=== PATIENT | female | born 2000 | race Caucasian/White ===

== ENCOUNTER 2021-01-29 14:00 | Outpatient (RCR) | payer OTHER, SELFPAY | END 2021-02-14 16:26 | disposition home or self-care (01) | LOC: PT.CARL 14:00 | PROVIDERS: Visit Provider Family Medicine | DX: M22.2X1 Patellofemoral disorders, right knee (principal) | CPT/HCPCS: 97010; 97014; 97033; 97110; 97163; G0283 ==

== ENCOUNTER 2021-11-11 14:29 | Emergency (ER) | payer OTHER, SELFPAY ==
[2021-11-11 14:54] VITALS: BP 112/77; PULSE 100; RESP 18; TEMP 36.8; O2SAT 98; BMI 26.4
[2021-11-11 14:59] LABS: UTC Strep Screen (Rapid) Negative (Negative)
--- NOTE | 2021-11-11 15:00 | EXP.UTC ---
Discharge Plan Disposition Patient Disposition: Home, Self-Care Condition: Good Prescriptions Prescriptions: New methylprednisolone 4 mg Tablets,Dose Pack 4 mg PO DIRECTED Qty: 21 0RF [id number] [Bromfed DM] 2-30-10 mg/5 mL Syrup 5 ml PO Q6H PRN (Reason: Cough) Qty: 240 0RF ondansetron 4 mg Tablet,Disintegrating 4 mg PO Q8H PRN (Reason: Nausea) Qty: 20 0RF ibuprofen [ibuprofen] 600 mg tablet 600 mg PO Q6HP PRN (Reason: Mild Pain) Qty: 30 0RF acetaminophen 500 mg capsule 1,000 mg PO Q6H PRN (Reason: pain) Qty: 30 0RF Referrals Follow up/Referrals: Cari Yan [Primary Care Provider] - See instructions Activity Restrictions/Add. Instructions Additional Instructions/Restrictions: Drink plenty of fluids. Take tylenol or ibuprofen for pain or fever. Take the medications as directed. Follow up with your regular doctor. GO TO THE ER FOR ANY WORSENING SYMPTOMS Clinical Impressions Clinical Impression: COVID-19, Acute viral pharyngitis Instructions Patient Instructions: Coronavirus Disease 2019, Preventing the Spread of Coronavirus Discharge Instructions Discharge ED Provider: Macho Norton [facility] General Stated complaint: 2 covid home test postive sore throat Time Seen by Provider: 11/11/21 15:00 History of Present Illness Provider Complaint: She has tested positive for covid-19 at home yesterday and today. She came in today because she is having a very sore throat and wants to be tested for strep also. Related Data Previous Rx's Medication Instructions Recorded acetaminophen 500 mg capsule 1,000 mg PO Q6H PRN pain #30 caps 11/11/21 qlpcjlpqvmznanz-daplkrsycadaeoc-FM 5 ml PO Q6H PRN Cough #240 mL 11/11/21 2 mg-30 mg-10 mg/5 mL oral syrup (Bromfed DM) ibuprofen 600 mg tablet 600 mg PO Q6HP PRN Mild Pain #30 11/11/21 tabs methylprednisolone 4 mg tablets in 4 mg PO DIRECTED #21 tabs 11/11/21 a dose pack ondansetron 4 mg disintegrating 4 mg PO Q8H PRN Nausea #20 tabs 11/11/21 tablet Allergies Allergy/AdvReac Type Severity Reaction Status Date / Time Cephalosporins Allergy Intermediate I-HIVES Verified 11/11/21 15:01 poison dede extract Allergy Mild I-RASH Verified 11/11/21 15:01 [facility] Social History Smoking Status: Never smoker alcohol intake: never current occupational status: employed ROS Obtained: Yes All systems reviewed & no additional complaints except as documented Constitutional Constitutional: Reports chills and Reports fever(s) Eyes Eyes: Denies eye discharge ENT Ears, Nose, Mouth, and Throat: Reports as per HPI Cardiovascular Cardiovascular: Denies chest pain Respiratory Respiratory: Denies chest congestion and Reports cough Gastrointestinal Gastrointestingal: Reports nausea; Denies abdominal pain, constipation, cramping, diarrhea or vomiting Musculoskeletal Musculoskeletal: Denies arthralgias Integumentary/Breasts Skin/Breast: Denies rash Neurologic Neurologic: Denies paresthesias Physical Exam General General appearance: alert and in no apparent distress Head Head exam: atraumatic, normocephalic and normal inspection Eye Eye exam: Present normal appearance, PERRL and EOMI ENT ENT exam: Present normal exam, normal oropharynx, mucous membranes moist, TM's normal bilaterally and normal external ear exam Neck Neck exam: Present normal inspection, full ROM and trachea midline; Absent meningismus or lymphadenopathy Chest Chest inspection: Present normal inspection and symmetric chest wall rise; Absent tenderness Respiratory Respiratory exam: Present normal lung sounds bilaterally; Absent respiratory distress Cardiovascular Cardiovascular exam: Present regular rate and normal rhythm; Absent JVD Abdominal Exam Abdominal exam: Present soft and normal bowel sounds; Absent distention, tenderness or guarding Extremities Exam Extremities exam: Prese
[2021-11-11 15:37] VITALS: BP 112/77; PULSE 100; RESP 18; TEMP 36.8
== END 2021-11-11 15:42 | disposition home or self-care (01) ==
PROVIDERS: Emergency Provider Nurse Practitioner Family; PCP Nurse Practitioner Family
DX: J02.9 Acute pharyngitis, unspecified (principal); U07.1 COVID-19; R11.2 Nausea with vomiting, unspecified; R51.9 Headache, unspecified; R05.9 Cough, unspecified; Z79.899 Other long term (current) drug therapy
CPT/HCPCS: 87880; 99213; G0463

== ENCOUNTER → 2021-11-22 08:00 | Outpatient (CLI) | payer OTHER, SELFPAY ==
--- NOTE | 2021-11-22 08:09 | US_ITS ---
FINAL REPORT CLINICAL HISTORY: UPPER ABDOMIAL, UNSPECIFIED FINDINGS: Sonographic images of the right upper quadrant were obtained. The pancreas is partially obscured.The liver has an unremarkable appearance.The gallbladder appears normal without evidence of gallstones.There is no evidence of biliary ductal dilatation.The common duct measures 2 mm. Limited images of the right kidney are unremarkable. IMPRESSION: Unremarkable right upper quadrant ultrasound. Reviewed, Interpreted and Dictated by Home Lambert III, MD Transcribed by Shakira Jerez Authenticated and [facility]
[2021-11-23 17:14] LABS: H. pylori Breath Test Negative (Negative)
== END ==
PROVIDERS: PCP Nurse Practitioner Family; Visit Provider Nurse Practitioner Family
DX: R10.10 Upper abdominal pain, unspecified (principal)
CPT/HCPCS: 76705; 83013

== ENCOUNTER 2024-02-29 19:40 | Emergency (ER) | payer OTHER, SELFPAY ==
[2024-02-29 19:41] VITALS: BP 130/92; PULSE 108; RESP 18; TEMP 36.8; O2SAT 99; BMI 27.5
--- NOTE | 2024-02-29 19:45 | ED_ITS ---
<Statement entered by Lelia Mo DO - 02/29/24 23:38> I was consulted by the DERIC, and we discussed the complexity of the problems being addressed. I approved the treatment and management plan for this patient's care in the emergency department, thus performing a substantive portion of the medical decision making. Lelia Mo DO Discharge Plan Disposition Patient Disposition: Home, Self-Care Condition: Good Prescriptions Prescriptions: No Action methylprednisolone 4 mg Tablets,Dose Pack 4 mg PO DIRECTED Qty: 21 0RF kiamieewnqohbeq-eqvxqmgfi-UB [Bromfed DM] 2-30-10 mg/5 mL Syrup 5 ml PO Q6H PRN (Reason: Cough) Qty: 240 0RF ondansetron 4 mg Tablet,Disintegrating 4 mg PO Q8H PRN (Reason: Nausea) Qty: 20 0RF ibuprofen [ibuprofen] 600 mg tablet 600 mg PO Q6HP PRN (Reason: Mild Pain) Qty: 30 0RF acetaminophen 500 mg capsule 1,000 mg PO Q6H PRN (Reason: pain) Qty: 30 0RF Referrals Follow up/Referrals: Cari Yan [Primary Care Provider] - See instructions Activity Restrictions/Add. Instructions Additional Instructions/Restrictions: As we have discussed, please check the patient portal for your throat culture results. Please continue your amoxicillin as scheduled. Please utilize the Magic mouthwash if its helpful with the pain. Continue taking Tylenol 1000 mg alternating every 4 hours with 800 mg of ibuprofen for symptomatic treatment. Clinical Impressions Clinical Impression: Acute pharyngitis Qualifiers: Pharyngitis/tonsillitis etiology: unspecified etiology Qualified Code(s): J02.9 - Acute pharyngitis, unspecified Stand Alone Forms Stand Alone Forms: Work/School Release Print Language Print Language: Tongan Discharge ED Provider: Lelia Mo General Adult HPI General Chief complaint: PAIN Stated complaint: sore throat, Time Seen by Provider: 02/29/24 19:45 History of Present Illness HPI narrative: Patient presents for evaluation of acute pharyngitis. Patient was seen and evaluated at a school clinic on Friday but had a negative rapid strep test. However they prescribed her amoxicillin anyway. Patient reports that she has had no improvement and actually has had worsening pharyngitis since Friday. She also reports that her fever is not under control and she has malaise and bodyaches but no chest pain shortness of breath nausea vomiting diarrhea dysuria. Related Data Previous Rx's ?Medication ?Instructions ?Recorded acetaminophen 500 mg capsule 1,000 mg (2 x 500 mg) PO Q6H PRN 11/11/21 pain #30 caps xlocczgpbossjgz-izvpphhqskmrwej-ZQ 5 ml PO Q6H PRN Cough #240 mL 11/11/21 2 mg-30 mg-10 mg/5 mL oral syrup (Bromfed DM) ibuprofen 600 mg tablet 600 mg PO Q6HP PRN Mild Pain #30 11/11/21 tabs methylprednisolone 4 mg tablets in 4 mg PO DIRECTED #21 tabs 11/11/21 a dose pack ondansetron 4 mg disintegrating 4 mg PO Q8H PRN Nausea #20 tabs 11/11/21 tablet Allergies Allergy/AdvReac Type Severity Reaction Status Date / Time Cephalosporins Allergy Intermediate I-HIVES Verified 11/11/21 15:01 poison dede extract Allergy Mild I-RASH Verified 11/11/21 15:01 [facility] Disclaimer: The information contained in this section may have been updated after the patient was seen, as this information can be updated by other users. Social History (Updated 11/11/21 @ 21:23 by Macho Norton APRN) Smoking Status: Never smoker alcohol intake: never current occupational status: employed Travel in the last 8 weeks: None Have you lived/traveled outside [place] in past 30 days?: No Contact w/someone who lives/traveled outside [place] past 30 days?: No Exposure to someone with infectious disease in past 14 days?: No Do you have a fever (greater than 100.4 F or 38 C)?: No Have you tested positive for COVID-19: No Exposed to someone with COVID-19 in past 14 days?: No Do you have a sore throat?: Yes Do you have a cough?: Yes Do you have any weakness?: No Do you have any diarrhea?: No Are you experiencing any unusual bleeding?: No Do you have any muscle aches/pain?: No Do you have any abdominal pain?: No Are you experiencing loss of taste or smell?: No ROS Obtained: Yes Systems reviewed as appropriate & no additional complaints except as documented Physical Exam General General appearance: alert and in no apparent distress Respiratory Respiratory exam: Present normal lung sounds bilaterally Cardiovascular Cardiovascular exam: Present regular rate Neurological Exam Neurological exam: Present alert and oriented X3 Medical Decision Making Medical Records Medical records reviewed: Yes I reviewed the patient's medical records. Screening: Per USPSTF and CDC recommendations, given the prevalence of disease in our region, it is our hospital?s policy to screen for HIV and viral Hepatitis for all patients aged 18 and over and those with ongoing risk factors. Josh Inquiry Pt receiving controlled substance: No Vital Signs: 02/29/24 19:41 Temperature 98.2 F Temperature Source Oral Pulse Rate [Right] 108 H Respiratory Rate 18 Blood Pressure [Right Arm] 130/92 H Blood Pressure Mean [Right Arm] 104 Blood Pressure Source [Right Arm] Automatic Cuff 02 Sat by Pulse Oximetry 99 Oxygen Delivery Method Room Air Lab Data Lab results reviewed: Yes I reviewed the patient's lab results. Lab Results 02/29/24 20:09: Chlamy pneumoniae PCR Not detected, Adenovirus (PCR) Not detected, B. pertussis DNA (PCR) Not detected, Coronavirus OC43 (PCR) Not detected, Coronavirus HKU1 (PCR) Not detected, Coronavirus 229E (PCR) Not detected, SARS-CoV-2 (PCR) Not detected, Coronavirus NL63 (PCR) Not detected, Human Metapneumovir PCR Not detected, Influenza A (H1) PCR Not detected, Influ A (H1N1/09) PCR Not detected, Influenza A (H3) PCR Not detected, Influenza Type A (PCR) Not detected, Influenza Type B (PCR) Not detected, M. pneumoniae (PCR) Not detected, Parainfluenza 1 (PCR) Not detected, Parainfluenza 2 (PCR) Not detected, Parainfluenza 3 (PCR) Not detected, Parainfluenza 4 (PCR) Not detected, RSV (PCR) Not detected, Entero/Rhino (PCR) Not detected, Group A Strep Rapid Negative 02/29/24 21:28: Monoscreen Negative Orders (Tests/Meds): ED MEDICATIONS Generic Name Dose Route Start Last Admin Trade Name Freq PRN Reason Stop Dose Admin Dexamethasone 10 mg 02/29/24 21:59 Dexamethasone 1mg/1ml Intensol 10ml Udc (Er) PO 02/29/24 22:00 ONCE ONE Discontinued Medications Generic Name Dose Route Start Last Admin Trade Name Freq PRN Reason Stop Dose Admin Acetaminophen 1,000 mg 02/29/24 20:17 02/29/24 20:23 Acetaminophen 500mg Tab PO 02/29/24 20:18 1,000 mg ONCE ONE Administration Ibuprofen 800 mg 02/29/24 20:17 02/29/24 20:24 Ibuprofen 400 Mg Tablet PO 02/29/24 20:18 800 mg ONCE ONE Administration ORDERS Category Date Time Status Full Resp Panel w/COVID ([facility]) Routine Lab 02/29/24 20:09 Completed Monoscreen (Rapid) Stat Lab 02/29/24 21:28 Completed Rapid Strep Scrn Group A [Strep Scrn Group A (Rapid)] Lab 02/29/24 20:09 Completed Stat Strep Screen Confirmation Stat Micro 02/29/24 20:09 Received Throat Culture Routine Micro 02/29/24 20: Received Medical Decision Narrative: In summary patient is a 23-year-old female who presents to the emergency department for evaluation of acute pharyngitis. Patient is hemodynamically stable upon arrival, afebrile. Physical exam is remarkable for a very erythematous and inflamed posterior pharynx with what appears to be tonsillar exudate. Patient has bilateral anterior cervical lymphadenopathy.. Differential diagnosis includes viral or bacterial pharyngitis. Initial workup will be conducted with full respiratory swab full throat swab rapid strep and mono.. Initial interventions include Tylenol and ibuprofen. I offered the patient topical numbing spray but she declined. Initial workup reviewed by me and her full respiratory panel is negative her rapid strep is negative and her mono is negative. Upon repeat evaluation patient had only minimal response with Tylenol Motrin. Given this is her throat culture is pending and she is on appropriate antibiotics for now even though this may be viral such as a coxsackie which is not on the respiratory panel I will give the patient dose of dexamethasone and Magic mouthwash with close follow-up with her PCP and strict return precautions. Critical Care Critical Care Time Critical Care Time: No
[2024-02-29] MEDS: ACETAMINOPHEN 500MG TAB 1000 MG PO (20:23)
[2024-02-29] MEDS: IBUPROFEN 400 MG TABLET 800 MG PO (20:24)
[2024-02-29 20:29] LABS: Adenovirus,PCR Not Detected (NotDetected); Bordetella Pertussis Not Detected (NotDetected); Chlamydophila Pneumoniae, PCR Not Detected (NotDetected); Coronavirus 19, PCR Not Detected (NotDetected); Coronavirus 229E Not Detected (NotDetected); Coronavirus NL63 Not Detected (NotDetected); Coronavirus OC43 Not Detected (NotDetected); Coronovirus HKU1,PCR Not Detected (NotDetected); Human Metapneumovirus Not Detected (NotDetected); Influenza A, PCR Not Detected (NotDetected); Influenza AH1, 2009 Not Detected (NotDetected); Influenza AH1, PCR Not Detected (NotDetected); Influenza AH3,PCR Not Detected (NotDetected); Influenza B, PCR Not Detected (NotDetected); Mycoplasma Pneumoniae, PCR Not Detected (NotDetected); Parainfluenza 1, PCR Not Detected (NotDetected); Parainfluenza 2, PCR Not Detected (NotDetected); Parainfluenza 3, PCR Not Detected (NotDetected); Parainfluenza 4, PCR Not Detected (NotDetected); Respiratory Syncytial Virus Not Detected (NotDetected); Rhinovirus/Enterovirus Not Detected (NotDetected)
[2024-02-29 20:36] LABS: Strep Scrn Group A (Rapid) Negative (Negative)
[2024-02-29 21:52] LABS: Monoscreen (Rapid) Negative (Negative)
[2024-02-29 22:24] VITALS: BP 128/74; PULSE 70; RESP 18; TEMP 36.8; O2SAT 98
[2024-02-29] MEDS: DEXAMETHASONE 1MG/1ML INTENSOL 10ML UDC (ER) 10 MG PO (22:26)
[2024-02-29] MEDS: MAGIC MOUTHWASH 300ML BOTTLE 15 ML PO (22:28)
== END 2024-02-29 22:24 | disposition home or self-care (01) ==
PROVIDERS: Physician Assistant; Emergency Provider Emergency Medicine; PCP Nurse Practitioner Family
DX: J02.9 Acute pharyngitis, unspecified (principal); R50.9 Fever, unspecified; R53.81 Other malaise; M79.10 Myalgia, unspecified site
CPT/HCPCS: 86318; 87070; 87077; 87430; 87633; 99283